=== PATIENT | male | born 1940 | race Caucasian/White ===

== ENCOUNTER → 2016-07-04 | Outpatient (CLI) | payer MEDICARE, BC ==
[~2016-07-04] MED LIST: ALLEGRA 180MG180 MG PO; AMLOPIDINE PO; AMOXICILLIN 50500 MG PO; ASPI325T6 PO; ASPIR-LOW81 MG PO; ASPIRIN 32325 MG/TAB PO; ASPIRIN E.C. 8181 MG PO; ATIVAN 1MG T1 MG/TAB PO; AVAPRO300 MG PO; BIDIL 37.5 MG-21 TAB PO; CALCIUM 500500 M1 PO; CALCIUM1 CAP PO; CARDI-OMEGA1000 MG PO; CARDURA 8MG TAB8 MG PO; CARDURA4 MG PO; CATAPRES0.2 MG PO; CEPHALEXIN500 M1 PO; CINNAMON500 MG PO; CITALOPRAM20 MG PO; CLONIDINE0.2 MG PO; COZAAR100 MG PO; DEMADEX 20MG20 MG PO; DEMADEX100 MG PO; DETROL LA4; DOXAZOCIN PO; FLOMAX 0.40.4 MG/CAP PO; FOLIC ACID 11 MG/TA1 PO; GLIPIZIDE5 MG PO; GLUCOSAMINE & C1 CAP PO; HEPARIN SOD5000 U/ML SQ; HUMALOG100 U/ML SC; HUMALOG100 U/ML SQ; IMODIUM 2MG CAPS2 MG PO; INSULIN LANTUS; LANTUS100 U/ML SC; LANTUS100 U/ML SQ; LEXAPRO 10MG10 MG PO; LOPRESSOR100 MG PO; LORTAB 5/500 501 TAB PO; METOLAZONE; METOPROLOL PO; METOPROLOL SUCC50 MG PO; MILK OF MA400 MG/5 M PO; MULTI VITAMINS1 TAB PO; MULTIPLE VITAMI1 CAP PO; NEPHROCAP PO; NITRO-DUR0.4 MG/PAT TD; NORCO 325 MG-51 TAB PO; NORCO 325 MG-7.1 TAB PO; NORVASC 10MG10 MG PO; NOVLOG SQ; NOVOLOG 100U100 U/M1 SC; NOVOLOG 100U100 U/M1 SQ; OMEGA-3 FISH1200 MG PO; OSTEO-BI-FLEX 21 TAB PO; PHENERGAN 25 TA25 MG PO; PHOS LO PO; PRAVACHOL 20MG20 MG PO; RENVELA800 MG PO; TOPROL XL100 MG PO; TRAZODO50 MG PO; TRICOR145 MG PO; TYLENOL 325MG325 MG PO; TYLENOL PM EXTR1 TA1 PO; VIRT-CAPS PO; VITAMIN C500 MG PO; VITAMIN D NATU400 IU PO; VITAMIN D31000 I1 PO; VITAMIN D31000 IU PO; ZAROXOLYN5 MG PO; ZOLOFT 50MG50 MG PO; ZOLPIDEM10 MG PO; ZYRTEC 10MG10 MG PO; [UNRECOGNIZED DRUG - OTHER] PO
== END ==
LOC: COL.RAD 13:00
DX: I50.9 Heart failure, unspecified (principal); Z95.0 Presence of cardiac pacemaker; J98.6 Disorders of diaphragm